=== PATIENT | male | born 1965 | race Hispanic/Latino ===

== ENCOUNTER → 2024-07-16 | Outpatient (CLI) | payer OTHER ==
--- NOTE | 2024-07-20 22:02 | HMCSR ---
APPROVED REPORT Bilateral Lower Extremity Venous Study for DVT., Venous Competence. Indications Varicose Veins, i87.1,i87.2 Vein Imaging CFV (R): Normal flow, augmentation and compression. No evidence of DVT. 14.7mm 600ms of reflux. SFJ (R): Normal flow, augmentation and compression. No evidence of DVT. FEM (R): Partially Compressible, Normal Augmentation, Evidence of chronic DVT. Mid 1244ms, Distal 39 92ms of reflux. POP (R): Partially Compressible, Normal Augmentation, Evidence of chronic DVT. 1194ms of reflux. DFV (R): Normal flow, augmentation and compression. No evidence of DVT. PTV (R): Normal flow, augmentation and compression. No evidence of DVT. Peroneals (R): Normal flow, augmentation and compression. No evidence of DVT. CFV (L): Normal flow, augmentation and compression. No evidence of DVT. 18.0mm 1494ms of reflux. SFJ (L): Normal flow, augmentation and compression. No evidence of DVT. FEM (L): Normal flow, augmentation and compression. No evidence of DVT. Mid 744ms, Distal 1644ms of reflux. POP (L): Normal flow, augmentation and compression. No evidence of DVT. 1228ms of reflux. DFV (L): Normal flow, augmentation and compression. No evidence of DVT. PTV (L): Normal flow, augmentation and compression. No evidence of DVT. Peroneals (L): Normal flow, augmentation and compression. No evidence of DVT. Technologist Impression Right SFV and Popliteal veins appear partially compressible with normal augmentation, suggestive of c hronic DVT. Deep venous reflux in the Right SFV, Right Popliteal, Left CFV, Left SFV and Left Popliteal veins. Superficial venous insufficiency in the RGSV, RSSV and LSSV. RGSV (tortuous) junction 7.1mm 0.0ms thigh 7.4mm 3478ms knee 6.5mm 1283ms calf 4.0mm 1222ms RSSV (tortuous with many variocosities) prox 5.1mm 3500ms mid 3.4mm 1950ms LGSV junction 7.3mm 694ms thigh 4.6mm 0.0ms knee 4.8mm 383ms calf 5.1mm 806ms LSSV prox 2.9mm 0.0ms mid 3.8mm 0.0ms Conclusion Right SFV and Popliteal veins appear partially compressible with normal augmentation, suggestive of c hronic DVT. Deep venous reflux in the Right SFV, Right Popliteal, Left CFV, Left SFV and Left Popliteal veins. Superficial venous insufficiency in the RGSV, RSSV and LSSV. Conclusion Right SFV and Popliteal veins appear partially compressible with normal augmentation, suggestive of c hronic DVT. Deep venous reflux in the Right SFV, Right Popliteal, Left CFV, Left SFV and Left Popliteal veins. Superficial venous insufficiency in the RGSV, RSSV and LSSV.
== END | disposition home or self-care (01) ==
LOC: SHCH 15:33
PROVIDERS: ATTEND Internal Medicine Cardiovascular Disease
DX: I87.2 Venous insufficiency (chronic) (peripheral) (principal); I87.1 Compression of vein
CPT/HCPCS: 93970

== ENCOUNTER → 2024-08-25 | Outpatient (CLI) | payer OTHER | END | disposition home or self-care (01) | LOC: SHCH 15:02 | PROVIDERS: ATTEND Internal Medicine Cardiovascular Disease | DX: I34.0 Nonrheumatic mitral (valve) insufficiency (principal) | CPT/HCPCS: 93306 ==